=== PATIENT | male | born 1990 | race Caucasian/White ===

== ENCOUNTER 2022-01-12 18:49 | Emergency (ER) | payer OTHER ==
[2022-01-12] MEDS ORDERED: HYDROmorphone 1 MG/ML CARPUJECT IM STA (20:13)
--- NOTE | 2022-01-12 20:15 | ED Physician Documentation ---
PD HPI MAJOR TRAUMA - Stated complaint Stated Complaint: FALL,BACK PX - Chief complaint Chief Complaint: Trauma Ch/Bk - History obtained from History obtained from: Patient - Additional information Additional information: 31-year-old gentleman who has no past medical history was skateboarding a couple of hours ago and fell and hit his back on the ground. An isolated injury but with severe pain. No head injury or loss of consciousness. He is here with his at the bedside. Review of Systems Constitutional: reports: Reviewed and negative Nose: reports: Reviewed and negative Respiratory: reports: Reviewed and negative PD PAST MEDICAL HISTORY - Present Medications Home Medications: Ambulatory Orders Medication Instructions Recorded Confirmed Oxycodone HCl/Acetaminophen 1 - 2 each PO Q6H PRN #30 tablet 01/12/22 [Percocet 5-325 mg Tablet] - Allergies Allergies/Adverse Reactions: Allergies Allergy/AdvReac Type Severity Reaction Status Date / Time No Known Drug Allergies Allergy Verified 01/12/22 18:59 PD ED PE NORMAL - Vitals Vital signs reviewed: Yes - General General: Alert and oriented X 3, Other (He looks to be in significant pain.) - HEENT HEENT: PERRL, EOMI - Neck Neck: Supple, no meningeal sign, No bony TTP - Cardiac Cardiac: RRR, No murmur - Respiratory Respiratory: No respiratory distress, Clear bilaterally, Other (Quite tender over the posterolateral ribs on the left no upper abdominal tenderness.) - Abdomen Abdomen: Normal bowel sounds, Soft, Non tender - Back Back: No CVA TTP, No spinal TTP - Derm Derm: Normal color, Warm and dry - Extremities Extremities: No deformity, No tenderness to palpate, Normal ROM s pain, Other (There is a scrape over the left fibular head without corresponding bony tenderness.) - Neuro Neuro: Alert and oriented X 3, Normal speech Eye Opening: Spontaneous Motor: Obeys Commands Verbal: Oriented GCS Score: 15 Results - Vitals Vitals: Vital Signs - 24 hr 01/12/22 01/12/22 01/12/22 18:59 20:24 20:47 Temperature 36.5 C Heart Rate 80 80 70 Respiratory 18 21 16 Rate Blood Pressure 145/89 H 137/82 H 131/84 H O2 Saturation 99 100 96 01/12/22 01/12/22 01/12/22 20:58 22:01 22:19 Temperature Heart Rate 73 65 76 Respiratory 16 16 Rate Blood Pressure 117/65 O2 Saturation 96 96 99 Oxygen O2 Source Room air PD MEDICAL DECISION MAKING - ED course ED course: 31-year-old gentleman with severe pain related to a posterior chest wall injury. CT scan: IMPRESSION: 1. Mildly displaced fracture of the left posterior eighth rib and minimal buckle fractures of the adjacent posterior left seventh and ninth ribs. 2. Minimal left pleural effusion containing 3 small foci of gas adjacent to the left rib fractures. Otherwise, no definite left pneumothorax. Pain much better after 2 mg of Dilaudid IM. Departure - Departure Disposition: Home, Self Care Clinical Impression: Fracture of rib Condition: Good Instructions: ED Fx Rib Prescriptions: Oxycodone HCl/Acetaminophen [Percocet 5-325 mg Tablet] 1 - 2 each PO Q6H PRN #30 tablet PRN Reason: pain Comments: I sent your prescription electronically to [facility] in [place]. When pain is mild you can take Tylenol and/or ibuprofen for pain. Recheck with your doctor in 1 week to make sure you are healing correctly, return for new or worsening symptoms. I am prescribing a short course of narcotic pain medication for you. These are potentially dangerous and addictive medications that should be used carefully. These medications may constipate you. Take an txdr-wll-[id number] stool softener (docusate) twice daily with plenty of water while taking these medications. If you go 24 hours without a bowel movement, take fxub-slc-[id number] miralax, per package instructions. Do not drink or drive while taking these medications. If you received narcotic or sedating medications while in the emergency department, do not drive for 24 hours. Store this medication in a safe, secure place and out of reach of children. It is a violation of federal law to give or sell this medication to another person or to use in a manner other than prescribed. The ED will not refill narcotic prescriptions, including prescriptions lost or stolen. To dispose of unwanted medications: 1. [facility] [address] in [place] has a medication drop box. They accept prescription medications (in pill form) Tuesday through Tuesday 9:00 a.m. to 5:00 p.m. 2. The [facility] [employer] accepts prescription medications (in pill form only) for disposal year round. Call for more information. 3. Contact the [facility] for the next [facility] sponsored prescription drug collection event. , [phone], or [phone]; Note that many narcotic pain relievers also contain Tylenol/acetaminophen. Please ensure that your total dose of acetaminophen from all sources does not exceed 3 g (3000 mg) per day. CT Read:
[2022-01-12] MEDS ORDERED: oxyCODONE/ACET 5/325 Prepack 4 PO STA (21:54)
--- NOTE | 2022-01-12 22:27 | CT Report ---
PROCEDURE: CHEST WO INDICATIONS: chest wall trauma TECHNIQUE: Noncontrast 1mm axial images were acquired from the pulmonary apices to the posterior costophrenic an gles. Axial 5 mm soft tissue kernel reconstructions were performed as well as 8 mm axial MIP and cor onal and sagittal 5 mm reformations. For radiation dose reduction, the following was used: automate d exposure control, adjustment of mA and/or kV according to patient size. COMPARISON: None. FINDINGS: Image quality: Excellent. Lower Neck: No lymphadenopathy by size criteria. Thyroid: Visualized thyroid demonstrates no discrete nodules. Axillae: No lymphadenopathy by size criteria. Chest Wall: Unremarkable. Bones: There is a mildly displaced fracture of the left eighth rib posteriorly. There are nondisplace d slight buckle fractures of the adjacent posterior seventh and ninth ribs. Visualized osseous struct ures demonstrate no suspicious lesions. Lungs and Airways: No pulmonary contusions or lacerations. No acute consolidation. There is mild dep endent atelectasis bilaterally. There is a 0.5 cm pulmonary nodule in the right middle lobe on series 5 image 193. The trachea and central airways are patent. Pleura: There is a minimal left pleural effusion containing 3 small foci of gas. Heart: Heart size is normal. No pericardial effusion. Thoracic Vessels: The aorta and pulmonary arteries are normal in size. Mediastinum and Jenni: No lymphadenopathy by size criteria. Esophagus: No wall thickening. No hiatal hernia. Abdomen: Visualized upper abdominal solid organs and bowel loops appear normal in the absence of con trast. IMPRESSION: 1. Mildly displaced fracture of the left posterior eighth rib and minimal buckle fractures of the adj acent posterior left seventh and ninth ribs. 2. Minimal left pleural effusion containing 3 small foci of gas adjacent to the left rib fractures. O therwise, no definite left pneumothorax. Reviewed by: Prince Colunga MD on 01/12/2022 10:26 PM PDT Approved by: Prince Colunga MD on 01/12/2022 10:26 PM PDT Station ID: [id number]
[2022-01-12 22:37] VITALS: BP 118/76
== END 2022-01-12 22:37 | disposition home or self-care (01) ==
LOC: ED 18:49
DX: S22.42XA Multiple fractures of ribs, left side, initial encounter for closed fracture (principal); V00.131A Fall from skateboard, initial encounter
CPT/HCPCS: 71250; 96372; 99283; 99284; J1170

== ENCOUNTER 2023-02-07 06:15 | Day surgery (SDC) | payer OTHER ==
[2023-02-07] MEDS ORDERED: LACTATED RINGERS 1,000 ML IV ONE (06:20)
[2023-02-07] MEDS ORDERED: PROPOFOL 500 MG/50 ML 500 MG/50 ML VIAL ONE (06:52)
[2023-02-07] MEDS ORDERED: LIDOCAINE-MPF 1% 30 ML VIAL ONE (07:14)
[2023-02-07] MEDS ORDERED: BACITRACIN ZINC OINT 1 PACKET TOP ONE (07:14)
--- NOTE | 2023-02-07 07:15 | ANESTHESIA ---
Pre-Anesthesia VS, & Labs - Diagnosis desires sterilization - Procedure b/l vasectomy Vital Signs: Temp Pulse Resp BP Pulse Ox O2 Flow Rate 36 C L 70 14 124/70 99 02/07/23 06:28 02/07/23 06:28 02/07/23 06:28 02/07/23 06:28 02/07/23 06:28 Height: 6 ft 8 in Weight (kg): 104 kg Body Mass Index: 25.2 BMI Classification: Overweight - NPO >8 hours - Lab Results Lab results reviewed: Yes Home Medications and Allergies Home Medications: Ambulatory Orders No Known Home Medications 01/28/23 No Known Home Medications 01/28/23 Allergies/Adverse Reactions: Allergies Allergy/AdvReac Type Severity Reaction Status Date / Time No Known Drug Allergies Allergy Verified 02/07/23 06:35 Anes History & Medical History - Anesthetic History Anesthesia Complications: reports: No previous complications Family history of Anesthesia Complications: Denies Family history of Malignant Hyperthermia: Denies - Medical History Cardiovascular: reports: None Pulmonary: reports: None Gastrointestinal: reports: None Urinary: reports: None Neuro: reports: None Musculoskeletal: reports: None Endocrine/Autoimmune: reports: None Blood Disorders: reports: None Skin: reports: None Smoking Status: Never smoker Psychosocial: reports: No issues indicated Exam General: Alert, Oriented x3, Cooperative Dental: WNL Mouth Openin Fingerbreadth Neck Mobility: Normal Mallampati classification: I Thyromental Distance: 4-6 cm Respiratory: Lungs clear Cardiovascular: Regular rate Plan Anesthesia Type: Total IV Consent for Procedure(s) Verified and Reviewed: Yes Code Status: Attempt Resuscitation ASA classification: 1-Healthy patient Is this case an emergency?: No
[2023-02-07] MEDS ORDERED: MIDAZOLAM 2 MG/2 ML VIAL ONE (07:27)
[2023-02-07] MEDS ORDERED: fentaNYL 100 MCG/2 ML VIAL ONE (07:27)
[2023-02-07] MEDS ORDERED: LIDOCAINE 1% 50 ML MDV TOP ONE (07:37)
[2023-02-07] MEDS ORDERED: LIDOCAINE 1% 50 ML MDV SUBQ ONE ×2 (07:37)
[2023-02-07] MEDS ORDERED: GLYCOPYRROLATE 1 MG/5 ML VIAL ONE (07:39)
[2023-02-07] MEDS ORDERED: NALOXONE 0.4 MG/ML VIAL IVP PRN (07:40)
[2023-02-07] MEDS ORDERED: ATROPINE ABBOJECT 1 MG/10 ML SYRINGE IVP PRN (07:40)
[2023-02-07] MEDS ORDERED: ePHEDrine 50 MG/ML VIAL IVP PRN (07:40)
[2023-02-07] MEDS ORDERED: fentaNYL 100 MCG/2 ML VIAL IVP PRN (07:40)
[2023-02-07] MEDS ORDERED: ONDANSETRON 4 MG/2 ML VIAL IVP PRN (07:40)
[2023-02-07] MEDS ORDERED: HYDROmorphone 0.5 MG/0.5 ML SYRINGE IVP PRN (07:40)
[2023-02-07] MEDS ORDERED: ONDANSETRON 4 MG/2 ML VIAL ONE (07:51)
[2023-02-07] MEDS ORDERED: LACTATED RINGERS 1,000 ML IV SCH (08:00)
[2023-02-07] MEDS ORDERED: LACTATED RINGERS 400 ML IV ONE (08:02)
--- NOTE | 2023-02-07 08:14 | Discharge Plan ---
Discharge Plan Problem Reviewed?: Yes Disposition: 01 Home, Self Care Diet: Regular Activity Restrictions: Additional Comments (No sexual activity for 7 days Minimal activity for 48h Slowly increase activity after 48h for one week After one week, ok for regular activity Must use secondary contraceptives (eg condoms) for 3months, until confirmatory semen analysis) Instruction Topics: Vasectomy No Scalpel No Smoking: If you smoke, Please STOP! Call for help. Follow-up with: Veronica Durant PA-C [Primary Care Provider] -
--- NOTE | 2023-02-07 08:18 | OPERATIVE REPORT ---
Operative Report - General Procedure Date: 02/07/23 Planned Procedure: Bilateral Vasectomy Pre-Op Diagnosis: elective sterilization Procedure Performed: Bilateral Vasectomy Post Op Diagnosis: elective sterilization - Procedure Note Primary Surgeon: Jt Anesthesia Provider: KAVYA Anesthesia Technique: MAC Findings: Normal vasectomy Complications: none - Other Other Information/Narrative: After informed consent was obtained the patient was brought to the OR and laid in the supine position. The patient was anesthetized per anesthesia protocols and prepped and draped in the usual sterile fashion A formal timeout was performed reconfirming the patient and procedure. Using 1% lidocaine as local a skin wheal was delivered to the right scrotal wall. The vas deferens was isolated. Using a sharp mosquito a window was made into the scrotal wall. A vasectomy clamp was used to grab the vas deferens. This was then gently from its sheath. A small portion of the vas was then resected with cautery. The ends were cauterized the ends were suture-ligated with 3-0 chromic suture. The ends were then dropped back into place after a fascial interposition stitch was placed with 3-0 chromic suture. There was excellent hemostasis. The incision site was closed with 3-0 chromic suture. An identical procedure was performed on the left side for the left vas deferens. Band-Aids were placed. All surgical counts were correct. The patient tolerated the procedure well was brought to PACU without further incident.
[2023-02-07 08:40] VITALS: O2SAT 98
[2023-02-07 08:50] VITALS: BP 110/72
--- NOTE | 2023-02-07 12:14 | ANESTHESIA POST OP EVALUATION ---
Anesthesia Post Eval - Post Anesthesia Eval Vitals: Last Vital Signs Temp 36 C L 02/07/23 08:45 Pulse 65 02/07/23 08:45 Resp 12 02/07/23 08:45 BP 110/72 02/07/23 08:45 Pulse Ox 98 02/07/23 08:45 O2 Flow Rate CV Function Including HR & BP: Stable Pain Control: Satisfactory Nausea & Vomiting: Negative Mental Status: Baseline Respiratory Status: Airway Patent Hydration Status: Satisfactory Anesthesia Complications: None
== END 2023-02-07 06:16 | disposition home or self-care (01) ==
LOC: SDS 06:15
PROVIDERS: ATTEND Urology
DX: Z30.2 Encounter for sterilization (principal)
CPT/HCPCS: 55250; J7120

== ENCOUNTER 2023-02-11 08:06 | Outpatient (CLI) | payer OTHER | END 2023-02-11 08:07 | disposition home or self-care (01) | LOC: DI 08:06 | PROVIDERS: ATTEND Physician Assistant | DX: R07.9 Chest pain, unspecified (principal); R42 Dizziness and giddiness; Z84.81 Family history of carrier of genetic disease | CPT/HCPCS: 93306 ==